=== PATIENT | female | born 1950 | race Caucasian/White ===

== ENCOUNTER → 2020-09-05 12:16 | Outpatient (CLI) | payer MEDICARE, SELFPAY ==
--- NOTE | ~2020-09-05 | MM_ITS ---
EXAMINATION: MM screening re BI w jackie HISTORY: Screening mammogram, family history of breast cancer in her sister. TECHNIQUE: Craniocaudal and mediolateral oblique 3-D tomosynthesis images were obtained and synthetic 2-D images were generated. CAD analysis was submitted and interpreted. COMPARISON: 07/13/2019, 12/30/2017, 12/03/2016 BREAST PARENCHYMAL COMPOSITION: There are scattered areas of fibroglandular density. FINDINGS: There is no evidence of suspicious mass, calcification, or architectural distortion to sugg est malignancy in either breast. There has been no suspicious interval change. IMPRESSION: 1. No mammographic evidence of malignancy. 2. Recommend routine screening mammography in one year. BI-RADS Category 1: Negative Reviewed, dictated and finalized at location A. R CUTTER
== END ==
PROVIDERS: PCP Family Medicine; Visit Provider Nurse Practitioner Adult Health
DX: Z12.31 Encounter for screening mammogram for malignant neoplasm of breast (principal)
CPT/HCPCS: 77063; 77067

== ENCOUNTER → 2021-12-30 13:28 | Outpatient (CLI) | payer MEDICARE, SELFPAY ==
--- NOTE | ~2021-12-30 | MM_ITS ---
EXAMINATION: MM screening re BI w jackie HISTORY: Screening mammogram TECHNIQUE: Craniocaudal and mediolateral oblique 3-D tomosynthesis images were obtained and synthetic 2-D images were generated. CAD analysis was submitted and interpreted. COMPARISON: 09/05/2020, 07/13/2019, 12/30/2017 bilateral screening mammogram examinations BREAST PARENCHYMAL COMPOSITION: There are scattered areas of fibroglandular density. FINDINGS: There is no evidence of suspicious mass, calcification, or architectural distortion to sugg est malignancy in either breast. There has been no suspicious interval change. IMPRESSION: 1. No mammographic evidence of malignancy. 2. Recommend routine screening mammography in one year. BI-RADS Category 1: Negative Reviewed, dictated and finalized at location A.
== END ==
PROVIDERS: PCP Nurse Practitioner Adult Health; Visit Provider Nurse Practitioner Adult Health
DX: Z12.31 Encounter for screening mammogram for malignant neoplasm of breast (principal)
CPT/HCPCS: 77063; 77067

== ENCOUNTER → 2022-01-09 13:20 | Outpatient (CLI) | payer MEDICARE, SELFPAY ==
--- NOTE | ~2022-01-09 | DEXA_ITS ---
Bone Density Report Name: EILEEN VEGA Age: 71 Sex: Female Ethnicity: White Date of : 1950 Indication: postmenopausal osteoporosis; height loss; prior fracture; Referring Provider: MAGDI, DOMINIQUE Study: Bone densitometry was performed. Exam Date: January 09, 2022 Accession number: [id number] Bone Density: Region BMD T-score Z-score Classification AP Spine (L1-L4) 0.839 -1.9 0.3 Osteopenia Femoral Neck (Left) 0.531 -2.9 -1.0 Osteoporosis Total Hip (Left) 0.762 -1.5 0.1 Osteopenia Femoral Neck (Right) 0.589 -2.3 -0.4 Osteopenia Total Hip (Right) 0.808 -1.1 0.5 Osteopenia Total Hip Mean 0.785 -1.3 0.3 Osteopenia World Health Organization criteria for BMD impression classify patients as: Normal (T-score at or above -1.0), Osteopenia (T-score between -1.0 and -2.5), or Osteoporosis (T-score at or below -2.5). 10-year Fracture Risk: FRAX not reported because: Some T-score for Spine Total or Hip Total or Femoral Neck at or below -2.5 Previous Exams: Region Exam Age BMD T-score BMD Change BMD Change Date g/cm2 vs Baseline vs Previous AP Spine(L1-L4) 01/09/2022 71 0.839 -1.9 0.074* 0.094* 10/14/2018 68 0.745 -2.7 -0.020 -0.005 01/18/2016 65 0.750 -2.7 -0.014 0.027* 05/09/2011 61 0.723 -2.9 -0.041* -0.005 11/02/2007 57 0.728 -2.9 -0.037* -0.037* 07/11/2005 55 0.765 -2.6 Total Hip(Left) 01/09/2022 71 0.762 -1.5 -0.178* 0.002 10/14/2018 68 0.760 -1.5 -0.180* -0.016 01/18/2016 65 0.776 -1.4 -0.164* -0.047* 05/09/2011 61 0.823 -1.0 -0.118* 0.072* 11/02/2007 57 0.751 -1.6 -0.190* -0.190* 07/11/2005 55 0.941 0.0 Total Hip(Right) 01/09/2022 71 0.808 -1.1 -0.150* -0.002 10/14/2018 68 0.810 -1.1 -0.148* 0.011 01/18/2016 65 0.799 -1.2 -0.159* -0.126* 05/09/2011 61 0.925 -0.1 -0.033* 0.129* 11/02/2007 57 0.796 -1.2 -0.162* -0.162* 07/11/2005 55 0.958 0.1 *Denotes significance at 95% confidence level, LSC for AP Spine = 0.022 g/cm2, LSC for Total Hip = 0.027 g/cm2 Clinical Information Provided by Patient: Has had a low trauma fracture Has used the following medications: Vitamin D Patient maximum height was 62 Menopause Age: 56 No regular weight bearing exercise Does not
== END ==
PROVIDERS: PCP Nurse Practitioner Adult Health; Visit Provider Nurse Practitioner Adult Health
DX: Z78.0 Asymptomatic menopausal state (principal); M85.88 Other specified disorders of bone density and structure, other site; M81.0 Age-related osteoporosis without current pathological fracture; M85.852 Other specified disorders of bone density and structure, left thigh; M85.851 Other specified disorders of bone density and structure, right thigh
CPT/HCPCS: 77080

== ENCOUNTER → 2023-05-29 13:33 | Outpatient (CLI) | payer MEDICARE, SELFPAY ==
--- NOTE | ~2023-05-29 | MM_ITS ---
EXAMINATION: MM screening re BI w jackie HISTORY: Screening mammogram TECHNIQUE: Craniocaudal and mediolateral oblique 3-D tomosynthesis images were obtained and synthetic 2-D images were generated. CAD analysis was submitted and interpreted. COMPARISON: December 30, 2021, September 05, 2020, July 13, 2019 bilateral screening mammogram examina tions BREAST PARENCHYMAL COMPOSITION: There are scattered areas of fibroglandular density. FINDINGS: There is no evidence of suspicious mass, calcification, or architectural distortion to sugg est malignancy in either breast. There has been no suspicious interval change. IMPRESSION: 1. No mammographic evidence of malignancy. 2. Recommend routine screening mammography in one year. BI-RADS Category 1: Negative Reviewed, dictated and finalized at location A.
== END ==
PROVIDERS: PCP Internal Medicine; Visit Provider Internal Medicine
DX: Z12.31 Encounter for screening mammogram for malignant neoplasm of breast (principal)
CPT/HCPCS: 77063; 77067

== ENCOUNTER → 2023-07-14 12:42 | Outpatient (CLI) | payer MEDICARE, SELFPAY ==
--- NOTE | ~2023-07-14 | XR_ITS ---
EXAMINATION: XR abdomen/kub 1V DATE: 07/14/2023 13:05 INDICATION: Other bacterial infections of unspecified site. TECHNIQUE: A supine view of the abdomen on 2 radiographs was obtained. COMPARISON: CT abdomen and pelvis 07/14/2023 FINDINGS: There are no dilated loops of bowel. There is a moderate volume of stool in the colon. Surg ical clips in the right upper quadrant are likely from cholecystectomy. There is no urolithiasis. IMPRESSION: 1. No urolithiasis. Reviewed, dictated and finalized at location E. IMPRESSION: 1. No urolithiasis.
--- NOTE | ~2023-07-14 | CT_ITS ---
EXAMINATION: CT abdomen pelvis wo con DATE: 07/14/2023 13:05 INDICATION: Other bacterial infections of unspecified site. TECHNIQUE: Computed tomography (CT) of the abdomen and pelvis was performed without intravenous contr ast. Automated exposure control and iterative reconstruction technique were employed. The dose-length product was 775.70 mGy-cm. COMPARISON: CT abdomen and pelvis 06/07/2018 FINDINGS: The visualized portions of the lung bases demonstrate mild atelectasis. There is mild scarr ing in right lower lobe. No pleural effusion. The heart size is normal. No pericardial effusion. Ther e is diffuse hepatic steatosis. There are changes of cholecystectomy. The spleen, pancreas, adrenal g lands, and kidneys are normal. There is no urolithiasis. There are no dilated loops of bowel. The camilo endix is not visualized. There are no pathologically enlarged lymph nodes. There is no free intraperi toneal fluid. There is severe thoracic spondylosis and moderate lumbar spondylosis. IMPRESSION: 1. Diffuse hepatic steatosis. Reviewed, dictated and finalized at location E.
== END ==
PROVIDERS: PCP Internal Medicine; Visit Provider Nurse Practitioner Adult Health
DX: K76.0 Fatty (change of) liver, not elsewhere classified (principal); A49.8 Other bacterial infections of unspecified site
CPT/HCPCS: 74018; 74176

== ENCOUNTER 2023-11-05 06:25 | Day surgery (SDC) | payer MEDICARE, SELFPAY ==
[2023-10-02 07:48] VITALS: BMI 33.5
[2023-11-05 07:32] VITALS: BP 157/82; PULSE 78; RESP 20; TEMP 37.2; O2SAT 98
[2023-11-05] MEDS: LACTATED RINGERS 1,000 ML 150 ML IV CONT (07:52)
--- NOTE | 2023-11-05 08:03 | PM.HPGS ---
History of Present Illness History of Present Illness Consent: Risks, benefits, and alternatives have been discussed and questions answered. Patient agrees to proceed with procedure. Chief complaint: Turpin's Esophagus Narrative: Lsieth David is a 73 year old female presents for EGD. His current weight appetite and bowel movements are normal. Patient denies abdominal pain. She denies any heartburn or dysphagia. She occasionally will notice some fullness in her chest. She does not take medications for Turpin's esophagus. She has been identified as having Trupin's esophagus with 2 prior EGDs. Most recently 5 years ago. Patient no longer takes acid reducing medications ago took baking soda at the request of her chiropractor. She presents today for follow-up exam. Review of Systems Review of Systems: Review of systems is noncontributory. [facility] Past Medical History Medical History (Updated 09/09/23 @ 14:05 by Latoya De Oliveira APN-C) Barretts esophagus HTN (hypertension) Osteoarthritis Surgical History Surgical History (Updated 09/09/23 @ 13:15 by Gene Gonzalez) History of arthroplasty of left knee History of bladder suspension procedure History of cholecystectomy S/P appy Family History Family History (Updated 02/07/16 @ 15:39 by DOCTOR UNKNOWN) Other Family history of allergic disorder Family history of cardiovascular disease Family history of malignant neoplasm Hypertension Social History Social History Smoking status: Never smoker Alcohol intake: never Substance use type: does not use Living arrangements: with family Meds Home Medications and Allergies Home Medications Medication Instructions Recorded Confirmed Type amlodipine 2.5 mg tablet 2.5 mg PO DAILY 09/09/23 11/05/23 History ascorbate calcium (vitamin C) 500 500 mg PO DAILY 09/09/23 10/20/23 History mg tablet cholecalciferol (vitamin D3) 10 10 mcg PO DAILY 09/09/23 10/20/23 History mcg (400 unit) capsule mecobalamin (vitamin B12) 500 mcg 500 mcg PO DIRECTED 09/09/23 10/20/23 History chewable tablet nebivolol 5 mg tablet (Bystolic) 5 mg PO DAILY 09/09/23 11/05/23 History vitamin K2 100 mcg capsule 100 mcg PO DAILY 10/20/23 10/20/23 History Allergies Allergy/AdvReac Type Severity Reaction Status Date / Time No Known Allergies Allergy Verified 11/05/23 07:22 Vital Signs Vital Signs - 24 hr 11/05/23 07:32 Temperature 99.0 F Pulse Rate 78 Respiratory Rate 20 Blood Pressure 157/82 H Pulse Oximetry 98 Oxygen Delivery Room Air Exam Narrative: Physical exam reveals patient to be alert. Vital signs stable. HEENT exam is unremarkable. Patient is anicteric. Lungs are clear to auscultation and to percussion is without murmur or extra sounds. Abdomen bowel sounds are present soft nontender with no organomegaly. Assessment and Plan Assessment and plan (1) Barretts esophagus: Code(s): K22.70 - Turpin's esophagus without dysplasia Status: Acute Assessment and Plan: Patient with Turpin's esophagus. Plan for surveillance EGD at this time and consider this at 3 year intervals.
--- NOTE | 2023-11-05 08:13 | P.PNAN_ITS ---
Anes - Initial Pre Proc Eval Procedure: Operation Date: 11/05/23 08:30 Proposed Procedures p Esophagogastroduodenoscopy - Mc Ventura MD Date/Time: 11/05/23 08:13 Surgeon: Mc Ventura MD Pre Op Diagnosis: Turipn's Esophagus Patient Data Age: 73 Gender: F Height: 1.52 m Weight: 78.6 kg Last Vital Signs Temp 37.2 C 11/05/23 07:32 Pulse 78 11/05/23 07:32 Resp 20 11/05/23 07:32 BP 157/82 H 11/05/23 07:32 Pulse Ox 98 11/05/23 07:32 O2 Del Method Room Air 11/05/23 07:32 Allergies Allergy/AdvReac Type Severity Reaction Status Date / Time No Known Allergies Allergy Verified 11/05/23 07:22 Home Medications Medication Instructions Recorded Confirmed Type amlodipine 2.5 mg tablet 2.5 mg PO DAILY 09/09/23 11/05/23 History ascorbate calcium (vitamin C) 500 500 mg PO DAILY 09/09/23 10/20/23 History mg tablet cholecalciferol (vitamin D3) 10 10 mcg PO DAILY 09/09/23 10/20/23 History mcg (400 unit) capsule mecobalamin (vitamin B12) 500 mcg 500 mcg PO DIRECTED 09/09/23 10/20/23 History chewable tablet nebivolol 5 mg tablet (Bystolic) 5 mg PO DAILY 09/09/23 11/05/23 History vitamin K2 100 mcg capsule 100 mcg PO DAILY 10/20/23 10/20/23 History Patient hx anesthesia problems: none Family hx anesthesia problems: none Results Review: All pre-operative results and documents have been reviewed as part of the pre- operative evaluation. [facility] Past Medical History Medical History Barretts esophagus HTN (hypertension) Osteoarthritis Surgical History Surgical History History of arthroplasty of left knee History of bladder suspension procedure History of cholecystectomy S/P appy Family History Family History Other Family history of allergic disorder Family history of cardiovascular disease Family history of malignant neoplasm Hypertension Social History Social History Smoking status: Never smoker Alcohol intake: never Substance use type: does not use Living arrangements: with family Anes - Eval Final PreProcedure Day of Procedure 11/05/23 08:13 Patient weight: obese Heart: regular rate and rhythm Lungs: clear to auscultation Airway: Mallampati scale class II Neurological: alert and oriented Last oral intake: >/= 8 hours ASA classification: III Emergent: no Anesthetic plan: proceed Anesthesia type and monitoring: general GIVS and standard monitoring Results Review: All pre-operative results and documents have been reviewed as part of the pre- operative evaluation. Informed Consent: The patient's anesthetic plan and its attendant risks and benefits were discussed with the patient/family/POA. Questions were solicited and answers provided to the satisfaction of the patient/family/POA.
[2023-11-05 08:45] VITALS: BP 104/58; PULSE 68; RESP 14; O2SAT 98
[2023-11-05 08:55] VITALS: BP 113/61; PULSE 65; RESP 14; O2SAT 97
[2023-11-05 09:05] VITALS: BP 128/77; PULSE 61; RESP 16; O2SAT 98
--- NOTE | 2023-11-05 09:05 | WPDANESPN ---
Anes - Prog Note Post-Op Date/Time: 11/05/23 09:05 Cardiovascular status: normal Respiratory status: normal Airway patency: baseline Mental status: baseline Post-Op hydration status: normal Vital Signs: Last Vital Signs Temp 37.2 C 11/05/23 07:32 Pulse 65 11/05/23 08:55 Resp 14 11/05/23 08:55 BP 113/61 11/05/23 08:55 Pulse Ox 97 11/05/23 08:55 O2 Del Method Room Air 11/05/23 08:55 Pain Score (VAS): 0/10 I/O: Intake & Output 11/04/23 11/05/23 11/05/23 23:59 07:59 15:59 Intake Total 700 Balance 700 Patient Feedback: Patient satisfied with anesthetic care.
== END 2023-11-05 09:17 | disposition home or self-care (01) ==
PROVIDERS: PCP Internal Medicine; Visit Provider Internal Medicine Gastroenterology
PROC: 0DJ08ZZ Inspection of Upper Intestinal Tract, Via Natural or Artificial Opening Endoscopic (ICD-10-PCS; CPT 43235; principal; 2023-11-05 08:30)
DX: K22.70 Barrett's esophagus without dysplasia (principal)
CPT/HCPCS: 43239

== ENCOUNTER 2023-11-06 07:29 | Outpatient (NON) | payer MEDICARE, SELFPAY | END 2023-11-06 07:30 | disposition home or self-care (01) | LOC: ANHLAB 07:30 | PROVIDERS: PCP Internal Medicine; Visit Provider Internal Medicine Gastroenterology | DX: K22.70 Barrett's esophagus without dysplasia (principal) | CPT/HCPCS: 88305 ==

== ENCOUNTER 2024-05-28 12:58 | Emergency (ER) | payer MEDICARE, SELFPAY ==
[2024-05-28 13:21] VITALS: BP 133/65; PULSE 68; RESP 16; TEMP 37.7; O2SAT 98
--- NOTE | 2024-05-28 13:24 | ED.FEMALEGU ---
HPI - Female Genitourinary General Chief complaint: Urogenital-Female Stated complaint: urinary issue Time Seen by Provider: 05/28/24 13:24 Source: patient Mode of arrival: ambulatory Limitations: no limitations History of Present Illness HPI Narrative: 74-year-old female presents with complaint of urinary frequency, urgency, fatigue since yesterday. Patient reports history of frequent urinary tract infection. Reports similar symptoms when she had UTI in April. Afebrile. All systems reviewed and negative except as noted above. Related Data Home Medications Medication Instructions Recorded Confirmed amlodipine 2.5 mg tablet 2.5 mg PO DAILY 09/09/23 05/28/24 ascorbate calcium (vitamin C) 500 500 mg PO DAILY 09/09/23 05/28/24 mg tablet cholecalciferol (vitamin D3) 10 10 mcg PO DAILY 09/09/23 05/28/24 mcg (400 unit) capsule mecobalamin (vitamin B12) 500 mcg 500 mcg PO DIRECTED 09/09/23 05/28/24 chewable tablet nebivolol 5 mg tablet (Bystolic) 5 mg PO DAILY 09/09/23 05/28/24 vitamin K2 100 mcg capsule 100 mcg PO DAILY 10/20/23 05/28/24 Allergies Allergy/AdvReac Type Severity Reaction Status Date / Time No Known Allergies Allergy Verified 05/28/24 13:04 Review of Systems Review of Systems: CONSTITUTIONAL: Denies fever, chills, or sweats. reports fatigue. EYES: Denies visual changes, redness, or discharge. ENT: Denies rhinorrhea, congestion, sore throat, or otalgia. CARDIOVASCULAR: Denies chest pain, palpitations, or edema. RESPIRATORY: Denies cough or dyspnea. GASTROINTESTINAL: Denies abdominal pain, nausea, vomiting, or diarrhea. GENITOURINARY: Reports dysuria, frequency. Denies hematuria. SKIN: Denies rash or itching. MUSCULOSKELETAL: Denies back pain, joint pain, or myalgia. NEUROLOGIC: Denies headache, numbness, or weakness. PSYCHIATRIC: Denies anxiety or depression. All other systems reviewed are negative, except as documented in HPI. [facility] Past Medical History Medical History Barretts esophagus HTN (hypertension) Osteoarthritis Surgical History Surgical History History of arthroplasty of left knee History of bladder suspension procedure History of cholecystectomy S/P appy Family History Family History Other Family history of allergic disorder Family history of cardiovascular disease Family history of malignant neoplasm Hypertension Social History Social History Smoking status: Never smoker Alcohol intake: never Substance use type: does not use Living arrangements: with family Comments At time of signature, agree with nursing past medical, surgical, social and family history. There is no relevant family history pertinent to the presenting complaint. Exam Narrative: GENERAL: This is a well-nourished, well-developed patient, in no apparent distress. HEAD: normocephalic, atraumatic. EYES: PERRL. Sclera clear/white. Vision is grossly intact. EARS: External ears normal NOSE: External nose normal NECK: Neck supple, non-tender without lymphadenopathy, masses or thyromegaly. CARDIOVASCULAR: Regular rate and rhythm without murmurs, gallops, or rubs. RESPIRATORY: Clear to auscultation. Breath sounds equal bilaterally. No wheezes, rales, or rhonchi. SKIN: warm, Dry, intact with no suspicious lesions or rash, good texture and turgor. NEURO: awake, alert, and oriented to person, place and time. There were no obvious focal neurologic abnormalities. EXTREMITIES: No joint tenderness, effusion, or edema noted. Course Course Level of Care: Express Care Visit Vital Signs Vital signs: Vital Signs Temperature 37.7 C H 05/28/24 13:21 Pulse Rate 68 05/28/24 13:21 Respiratory Rate 16 05/28/24 13:21 Blood Pressure 133/65 05/28/24 13:
[2024-05-28 13:25] LABS: EDUAAPPEAR Cloudy; EDUABILI Negative (Negative); EDUABLOOD 3+ (Negative); EDUACOLOR1 Yellow; EDUAGLUCOSE Negative (Negative); EDUAKETONE Trace (Negative); EDUALEUKO Negative (Negative); EDUANITRATE Positive (Negative); EDUAPROTEIN 3+ (Negative); EDUAUROBILI 0.2
== END 2024-05-28 13:40 | disposition home or self-care (01) ==
PROVIDERS: Emergency Provider Nurse Practitioner Family; PCP Internal Medicine
DX: N39.0 Urinary tract infection, site not specified (principal); B96.20 Unspecified Escherichia coli [E. coli] as the cause of diseases classified elsewhere; K22.70 Barrett's esophagus without dysplasia; I10 Essential (primary) hypertension; M19.90 Unspecified osteoarthritis, unspecified site; Z96.652 Presence of left artificial knee joint
CPT/HCPCS: 81003; 87077; 87086; 87088; 87186; 99213; G0463

== ENCOUNTER 2024-06-27 13:09 | Outpatient (CLI) | payer MEDICARE, SELFPAY ==
--- NOTE | ~2024-06-27 | DEXA_ITS ---
Bone Density Report Name: EILEEN VEGA Age: 74 Sex: Female Ethnicity: White Date of : 1950 Indication: postmenopausal; screening for osteoporosis; height loss; Referring Provider: DONIS, SHUBHAM Study: Bone densitometry was performed. Exam Date: June 27, 2024 Accession number: [id number] Bone Density: Region BMD T-score Z-score Classification AP Spine(L1-L4) 0.871 -1.6 0.7 Osteopenia Femoral Neck (Left) 0.429 -3.8 -1.8 Osteoporosis Total Hip (Left) 0.683 -2.1 -0.4 Osteopenia Femoral Neck (Right) 0.470 -3.4 -1.4 Osteoporosis Total Hip (Right) 0.731 -1.7 0.0 Osteopenia Total Hip Mean 0.707 -1.9 -0.2 Osteopenia World Health Organization criteria for BMD impression classify patients as: Normal (T-score at or above -1.0), Osteopenia (T-score between -1.0 and -2.5), or Osteoporosis (T-score at or below -2.5). 10-year Fracture Risk: FRAX not reported because: Some T-score for Spine Total or Hip Total or Femoral Neck at or below -2.5 Clinical Information Provided by Patient: Has used the following medications: Vitamin D Patient maximum height was 62.0 No regular weight bearing exercise Does not regularly consume dairy products Drinks caffeinated beverages Onset of menses at age 12 Number of children 5 Impression: The patient has osteoporosis, based on the Left Femoral Neck T-score. Discussion: INCREASED RISK OF FRACTURE. BONE DENSITY IS UNDESIRABLY LOW AT ONE OR MORE SKELETAL SITES, CONSISTENT WITH POSTMENOPAUSAL OSTEOPOROSIS. This patient's lowest T-score meets the World Health Organization's (WHO) criteria for osteoporosis at one or more sites (T-score -2.5 or below). In untreated patients, the risk of osteoporotic fracture increases approximately two-fold for each 1.0 SD decrease in T-score. Low bone density is not the only risk factor for fracture; also consider factors such as patient's age, frailty or poor health, risk of falling, risk of injury, previous osteoporotic fracture, family history of osteoporosis, cigarette smoking, low body weight, etc. Not everyone with low bone mineral density has osteoporosis; osteomalacia and other metabolic bone disorders should also be considered. Patients who have osteoporosis should be evaluated for specific diseases and conditions (secondary causes) that may cause or contribute to bone loss. The [place] [employer] (AACE) and National Osteoporosis Foundation (NOF) recommend pharmacologic intervention for all postmenopausal women whose T-score is in this range. The patient should follow a healthful lifestyle (good nutrition with adequate calcium and vitamin D, and appropriate weight-bearing exercise). Follow-Up: Consider a repeat BMD and Vertebral Fracture Assessment (VFA) exam in 2 years or sooner if medicall
== END 2024-06-27 13:10 | disposition home or self-care (01) ==
LOC: ANHIMG 13:12
PROVIDERS: PCP Internal Medicine; Visit Provider Internal Medicine
DX: Z78.0 Asymptomatic menopausal state (principal); M85.88 Other specified disorders of bone density and structure, other site; M81.0 Age-related osteoporosis without current pathological fracture; M85.852 Other specified disorders of bone density and structure, left thigh; M85.851 Other specified disorders of bone density and structure, right thigh
CPT/HCPCS: 77080

== ENCOUNTER 2024-08-09 10:33 | Outpatient (CLI) | payer MEDICARE, SELFPAY ==
--- NOTE | ~2024-08-09 | MM_ITS ---
EXAMINATION: MM screening re BI w jackie HISTORY: Screening mammogram, family history of breast cancer in her sister. TECHNIQUE: Craniocaudal and mediolateral oblique 3-D tomosynthesis images were obtained and synthetic 2-D images were generated. CAD analysis was submitted and interpreted. COMPARISON: 06/10/2023, 12/30/2021, 09/05/2020 BREAST PARENCHYMAL COMPOSITION:Not Dense. There are scattered areas of fibroglandular density. FINDINGS: No suspicious mass, calcification, or architectural distortion are identified in either kimberly ast to suggest malignancy. There has been no suspicious interval change. IMPRESSION: No mammographic evidence of malignancy. Recommend routine screening mammography in one year. BI-RADS Category 1: Negative Reviewed, dictated and finalized at location . [employer]CH[employer]
== END 2024-08-09 10:34 | disposition home or self-care (01) ==
LOC: MICIMG 10:33
PROVIDERS: PCP Internal Medicine; Visit Provider Internal Medicine
DX: Z12.31 Encounter for screening mammogram for malignant neoplasm of breast (principal)
CPT/HCPCS: 77063; 77067

== ENCOUNTER 2024-09-12 12:55 | Emergency (ER) | payer MEDICARE, SELFPAY ==
[2024-09-12 13:16] VITALS: BP 133/57; PULSE 74; RESP 16; TEMP 37.4; O2SAT 98
[2024-09-12 13:21] LABS: EDUAAPPEAR Clear; EDUABILI Negative (Negative); EDUABLOOD 1+ (Negative); EDUACOLOR1 Yellow; EDUAGLUCOSE Negative (Negative); EDUAKETONE Negative (Negative); EDUALEUKO Trace (Negative); EDUANITRATE Negative (Negative); EDUAPH 5.5; EDUAPROTEIN Negative (Negative); EDUASPGRAVITY 1.015; EDUAUROBILI 0.2
--- NOTE | 2024-09-12 13:29 | ED_ITS ---
HPI - General Adult General Chief complaint: Urogenital-Female Stated complaint: Sinus/UTI Time Seen by Provider: 09/12/24 13:29 Source: patient, RN notes reviewed and old records reviewed Mode of arrival: ambulatory Limitations: no limitations History of Present Illness HPI narrative: 74-year-old female presents to the [facility] with 40 history congestion. Pain with coughing only. States on Thursday that she took to azithromycin she got from her . Patient reports then on Thursday she had some urinary symptoms, frequency, urgency and burning. Took Augmentin that she had ?left over on Thursday. Patient denies any abdominal pain or fevers. Onset (ago): day(s) Related Data Home Medications ?Medication ?Instructions ?Recorded ?Confirmed ?Last Taken ?Type amlodipine 2.5 mg tablet 2.5 mg PO DAILY 09/09/23 09/12/24 11/05/23 History ascorbate calcium (vitamin C) 500 500 mg PO DAILY 09/09/23 09/12/24 10/20/23 History mg tablet cholecalciferol (vitamin D3) 10 10 mcg PO DAILY 09/09/23 09/12/24 10/20/23 History mcg (400 unit) capsule mecobalamin (vitamin B12) 500 mcg 500 mcg PO DIRECTED 09/09/23 09/12/24 10/20/23 History chewable tablet nebivolol 5 mg tablet (Bystolic) 5 mg PO DAILY 09/09/23 09/12/24 11/05/23 History vitamin K2 100 mcg capsule 100 mcg PO DAILY 10/20/23 09/12/24 10/20/23 History Allergies Allergy/AdvReac Type Severity Reaction Status Date / Time No Known Allergies Allergy Verified 09/12/24 13:08 Review of Systems Review of Systems: All systems reviewed & are unremarkable except as noted in HPI and below Constitutional: Constitutional: Reports no additional constitutional complaints ENT: Reports system reviewed and no additional complaints, except as document ed Cardiovascular: Cardiovascular: Reports no additional cardiovascular complaints, Denies chest pain and Denies dyspnea Respiratory: Respiratory: Reports as per HPI, Reports chest congestion, Reports cough and Denies dyspnea Genitourinary: Genitourinary: Reports as per HPI Musculoskeletal: Musculoskeletal: Reports no additional musculoskeletal complaints Integumentary/Breasts: Skin/Breast: Reports system reviewed and no additional complaints, except as docu PMFSH Past Medical History Medical History Barretts esophagus Osteoarthritis HTN (hypertension) Surgical History Surgical History History of arthroplasty of left knee History of bladder suspension procedure S/P appy History of cholecystectomy Family History Family History Other Family history of allergic disorder Family history of cardiovascular disease Family history of malignant neoplasm Hypertension Social History Social History Smoking status: Never smoker Alcohol intake: never Substance use type: does not use Living arrangements: with family Comments At the time of my signature, I reviewed and agree with the nursing past medical, surgical, social, and family history. There is no relevant family history pertinent to the patient complaint. Exam Const: General: cooperative, healthy appearing, comfortable, no acute distress, well developed, alert and well nourished Nutritional Appearance: well nourished Orientation/consciousness: patient oriented x3 Limitations: no limitations HENMT: Head: normal to inspection Ears: hearing grossly normal bilaterally, external ears normal, EAC's normal, mastoids normal and no periauricular adenopathy Face/Nose/Sinus: normal facial exam and face symmetric Face and sinus: normal facial exam and face symmetric Mouth: Yes Normal oral and palatal mucosa present, Yes lip normal and Yes tongue normal Throat: posterior oropharynx normal, uvula midline, postnasal drainage and no uvular edema Eyes: General: appearance normal, both eyes and all related structures Neck: Neck: normal visual inspection, full ROM, no lymphadenopathy and no meningeal signs Chest: Chest palpation & inspection: normal inspection of the chest Resp: Effort & Inspection: normal respiratory effort and able to speak in complete sentences Auscultation: clear to auscultation bilaterally, no crackles, no rales, no rhonchi and no wheezes Cardio: Rate: regular rate GI: GI Palp: No abdominal tenderness Skin: General skin exam: normal color and no rashes or lesions noted Neuro: General: patient oriented x3, gait normal, moves all extremities and no meningeal signs Cognition (Neuro): normal cognition Speech: normal speech Gait exam (Neuro): Normal gait present Extrem: General: normal to inspection, full ROM, capillary refill normal and normal gait Psych: Appearance: grossly normal and well kempt Mental Status: mental status grossly normal Speech and movement: Normal speech and movement present and Clear speech present Affect: normal affect Attitude: cooperative Course Course Level of Care: Express Care Visit Vital Signs Vital signs: Vital Signs Temperature 99.3 F 09/12/24 13:16 Pulse Rate 74 09/12/24 13:16 Respiratory Rate 16 09/12/24 13:16 Blood Pressure 133/57 L 09/12/24 13:16 Pulse Oximetry 98 09/12/24 13:16 Oxygen Delivery Room Air 09/12/24 13:16 Temperature 99.3 F 09/12/24 13:16 Pulse Rate 74 09/12/24 13:16 Respiratory Rate 16 09/12/24 13:16 Blood Pressure 133/57 L 09/12/24 13:16 Pulse Oximetry 98 09/12/24 13:16 Oxygen Delivery Room Air 09/12/24 13:16 Reviewed Medical Decision Making MDM Narrative Medical decision making narrative: Patient sitting comfortably in exam room. Nontoxic, vitals stable. Patient in no acute distress Patient presents for concerns for cough for 4 days, UTI symptoms for 2 Try treating at home with left over antibiotics, patient educated on antibiotic resistance and that she should never have antibiotics left. Urine dip showed probable UTI, will culture however will treat No acute findings noted for upper respiratory except for postnasal drainage Patient appropriate for outpatient treatment Discharge instructions reviewed with patient, as well as provided in writing per nursing staff. The instructions also include specific and strict return/GO TO THE ER as well as f/u information. All questions have been answered, and the patient deny any further questions with discharge and discharge plan. Some parts of this dictation were generated by voice recognition software and may contain typographical and/or grammatical inaccuracies. Differential Diagnosis Differential Diagnosis: URI bronchitis, sinusitis, UTI Medical Records Medical records reviewed: Yes I reviewed the external patient's medical records. Vital Signs Vital Signs: Vital Signs Temperature 99.3 F 09/12/24 13:16 Pulse Rate 74 09/12/24 13:16 Respiratory Rate 16 09/12/24 13:16 Blood Pressure 133/57 L 09/12/24 13:16 Pulse Oximetry 98 09/12/24 13:16 Oxygen Delivery Room Air 09/12/24 13:16 Temperature 99.3 F 09/12/24 13:16 Pulse Rate 74 09/12/24 13:16 Respiratory Rate 16 09/12/24 13:16 Blood Pressure 133/57 L 09/12/24 13:16 Pulse Oximetry 98 09/12/24 13:16 Oxygen Delivery Room Air 09/12/24 13:16 Reviewed Lab Data Lab results reviewed: Yes I reviewed the patient's lab results. Labs: Lab Results 09/12/24 Range/Units 13:19 POC Urine Color Yellow POC Urine Clarity Clear POC Urine pH 5.5 POC Ur Specif Holman 1.015 POC Urine Protein Negative (Negative) POC Ur Glucose (UA) Negative (Negative) POC Urine Ketones Negative (Negative) POC Urine Blood 1+ (Negative) POC Urine Nitrite Negative (Negative) POC Urine Bilirubin Negative (Negative) POC Urine Urobilinogen 0.2 POC U Leukocyte Esteras Trace (Negative) Reviewed Critical Care Time Critical Care Time Critical Care Time: No Discharge Plan Discharge Clinical Impression: Urinary tract infection Qualifiers: Urinary tract infection type: acute cystitis Hematuria presence: with hematuria Qualified Code(s): N30.01 - Acute cystitis with hematuria Cough Qualifiers: Cough type: acute Qualified Code(s): R05.1 - Acute cough Patient Disposition: Home, Self-Care Condition: Stable Instructions: Antibiotic Form, Urinary Tract Infection in Women (DC) Additional Instructions: For the cough you can take Coricidin HBP cold medicine Increased water intake Take Tylenol as needed for pain Take antibiotic as prescribed. Be sure to take all antibiotics as prescribed. You should never have leftover antibiotics. Today your urine dip showed a probability of a UTI. You have been prescribed an antibiotic. Your urine will be sent to our lab for a culture. If at that time a bacteria grows that is not covered by the antibiotic prescribed you will be notified. Follow-up with primary care this week For new or worsening symptoms go directly to the emergency room Patient Language: Surinamese Prescriptions: New cefuroxime axetil 500 mg tablet 500 mg PO BID Qty: 10 0RF No Action amlodipine 2.5 mg tablet 2.5 mg PO DAILY ascorbate calcium (vitamin C) 500 mg tablet 500 mg PO DAILY cholecalciferol (vitamin D3) 10 mcg (400 unit) capsule 10 mcg PO DAILY mecobalamin (vitamin B12) 500 mcg tablet,chewable 500 mcg PO DIRECTED nebivolol [Bystolic] 5 mg tablet 5 mg PO DAILY vitamin K2 100 mcg Capsule 100 mcg PO DAILY Follow-up/Referrals: Blair,MD Jami [Primary Care Provider] - 1 Week ([facility] follow-up) Time of Disposition: 13:45
== END 2024-09-12 13:50 | disposition home or self-care (01) ==
PROVIDERS: Emergency Provider Nurse Practitioner; PCP Internal Medicine
DX: N30.01 Acute cystitis with hematuria (principal); R05.1 Acute cough; I10 Essential (primary) hypertension
CPT/HCPCS: 81003; 87086; 99213; G0463